=== PATIENT | female | born 1980 | race American Indian/Alaskan Native ===

== ENCOUNTER 2020-06-18 22:57 | Emergency (ER) | payer SELFPAY ==
[2020-06-18 23:53] VITALS: BP 107/70
== END 2020-06-19 01:45 | disposition left against medical advice (07) ==
LOC: ED 22:57
DX: R51.9 Headache, unspecified (principal); Z53.21 Procedure and treatment not carried out due to patient leaving prior to being seen by health care provider

== ENCOUNTER 2020-06-20 17:25 | Emergency (ER) | payer OTHER ==
[2020-06-20 18:48] VITALS: BP 127/75
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
[2020-06-20 22:37] LABS: Bilirubin,Urine NEG (Negative); Blood,Urine NEG (Negative); Calcium Oxalate Crystals,Urine 1+; Color,Urine Yellow (Yellow); Mucus,Urine FEW /HPF; Protein,Urine <15 mg/dL mg/dL (Negative); WBC,Urine < 1.0 /HPF (0.0-6.0)
[2020-06-20 22:39] LABS: HCG Qualitative,Urine Negative (Negative)
[2020-06-20] MEDS ORDERED: traMADol 50 MG TAB PO ONE (23:45)
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
== END 2020-06-21 | disposition home or self-care (01) ==
LOC: ED 17:25
DX: S39.012A Strain of muscle, fascia and tendon of lower back, initial encounter (principal); S16.1XXA Strain of muscle, fascia and tendon at neck level, initial encounter; Z79.899 Other long term (current) drug therapy; Z88.8 Allergy status to other drugs, medicaments and biological substances; V49.49XA Driver injured in collision with other motor vehicles in traffic accident, initial encounter; Y93.89 Activity, other specified; Y92.488 Other paved roadways as the place of occurrence of the external cause; Y99.8 Other external cause status
CPT/HCPCS: 72040; 72100; 81001; 81025; 99283